=== PATIENT | female | born 1965 | race Caucasian/White ===

== ENCOUNTER 2016-11-26 11:36 | Outpatient (CLI) | payer OTHER, BC ==
[~2016-11-26] VITALS: Ht 172.7 cm; Wt 84.3 kg
[~2016-11-26 11:36] MED LIST: CLON-412 PO; CYMB60CA3 PO; LAMO10TA PO
[2016-11-26] MEDS ORDERED: NS 1,000 ML IV SCH (11:45)
[2016-11-26] MEDS ORDERED: LIDOCAINE 2% INJ 100 MG/5 ML SDV (FOR ANES.) As Ordered ONE (12:56)
[2016-11-26] MEDS ORDERED: PROPOFOL 200 MG/20 ML VIAL As Ordered ONE (12:56)
--- NOTE | 2016-11-26 13:05 | ROOR ---
Patient Name: Estela Gandhi Procedure Date: 11/26/2016 12:37 PM Date of : 1965 Age: 51 Room: [facility] Gender: Female Note Status: Finalized Procedure: Total Colonoscopy to Cecum + Biopsy Polypectomy Indications: Screening for colorectal malignant neoplasm Providers: Isaías Gill MD Referring MD: Sonia Chance NP Requesting Provider: Medicines: Monitored Anesthesia Care Complications: No immediate complications. Procedure: Pre-Anesthesia Assessment: - The heart rate, respiratory rate, oxygen saturations, blood pressure, adequacy of pulmonary ventilation, and response to care were monitored throughout the procedure. The Colonoscope was introduced through the anus and advanced to the cecum, identified by appendiceal orifice and ileocecal valve. The colonoscopy was performed without difficulty. The patient tolerated the procedure well. The quality of the bowel preparation was excellent. Findings: The perianal and digital rectal examinations were normal. Non-bleeding internal hemorrhoids were found during retroflexion. The hemorrhoids were small and Grade I (internal hemorrhoids that do not prolapse). Scattered small-mouthed diverticula were found in the recto-sigmoid colon, sigmoid colon and descending colon. A small polyp was found at 20 cm proximal to the anus. The polyp was sessile. The polyp was removed with a jumbo cold forceps. Resection and retrieval were complete. The exam was otherwise without abnormality on direct and retroflexion views. Impression: - Non-bleeding internal hemorrhoids. - Diverticulosis in the recto-sigmoid colon, in the sigmoid colon and in the descending colon. - One small polyp at 20 cm proximal to the anus, removed with a jumbo cold forceps. Resected and retrieved. - The examination was otherwise normal on direct and retroflexion views. - The exam was otherwise normal to the cecum. Recommendation: - Patient has a contact number available for emergencies. The signs and symptoms of potential delayed complications were discussed with the patient. Return to normal activities tomorrow. Written discharge instructions were provided to the patient. - Discharge patient to home. - Continue present medications. - Await pathology results. - Telephone GI clinic for pathology results in 1 week. - Repeat colonoscopy for surveillance based on pathology results. - Return to referring physician. - Check Portal Online for Path Results.([email or web address] - The findings and recommendations were discussed with the patient's family. Isaías Gill MD Isaías Gill MD 11/26/2016 1:05:04 PM This report has been signed electronically. Number of Addenda: 0 Note Initiated On: 11/26/2016 12:37 PM Estimated Blood Loss: Estimated blood loss: none.
[2016-11-26 13:28] VITALS: BP 115/69
== END 2016-11-26 13:30 | disposition home or self-care (01) ==
LOC: M OPP 11:36
PROVIDERS: ATTEND Internal Medicine Gastroenterology
DX: Z12.11 Encounter for screening for malignant neoplasm of colon (principal); K64.0 First degree hemorrhoids; K57.30 Diverticulosis of large intestine without perforation or abscess without bleeding; D12.5 Benign neoplasm of sigmoid colon; M79.7 Fibromyalgia; F41.9 Anxiety disorder, unspecified; Z79.899 Other long term (current) drug therapy

== ENCOUNTER → 2018-03-11 | Outpatient (REF) | payer OTHER ==
[2018-03-11 18:09] LABS: VITAMIN B12 LEVEL 454 PG/ML (247-911)
== END ==
LOC: M LAB REF 17:07
DX: R20.8 Other disturbances of skin sensation (principal)
CPT/HCPCS: 82607

== ENCOUNTER → 2020-05-27 | Outpatient (CLI) | payer SELFPAY ==
[~2020-05-27] MED LIST changes: +LAMO100T80 PO; -LAMO10TA PO
== END ==
LOC: M LABSMTC 14:16
PROVIDERS: ATTEND Pediatrics
DX: Z20.822 Contact with and (suspected) exposure to COVID-19 (principal)

== ENCOUNTER → 2021-01-12 | Outpatient (REF) | payer OTHER | LOC: M LAB REF 11:14 | PROVIDERS: ATTEND Nurse Practitioner Adult Health | DX: J02.9 Acute pharyngitis, unspecified (principal) ==

== ENCOUNTER → 2021-04-11 | Outpatient (REF) | payer OTHER ==
[~2021-04-11] MED LIST changes: -CYMB60CA3 PO; +CYMB60CA4 PO
== END ==
LOC: M LAB REF 16:08
PROVIDERS: ATTEND Nurse Practitioner Adult Health
DX: G43.109 Migraine with aura, not intractable, without status migrainosus (principal)

== ENCOUNTER → 2021-05-12 | Outpatient (CLI) | payer OTHER, BC ==
[~2021-05-12] MED LIST changes: +PROHANCE 279.3MG/ML 15ML VIAL ONE; +PROHANCE 279.3MG/ML 5ML VIAL ONE
== END ==
LOC: M PLAIMG 14:19
PROVIDERS: ATTEND Nurse Practitioner Adult Health
DX: R42 Dizziness and giddiness (principal)
CPT/HCPCS: 70553; A9576

== ENCOUNTER → 2024-04-24 | Outpatient (REF) | payer OTHER, BC ==
[~2024-04-24] MED LIST changes: -PROHANCE 279.3MG/ML 15ML VIAL ONE; -PROHANCE 279.3MG/ML 5ML VIAL ONE
[2024-04-27 13:14] LABS: RNP ANTIBODY <1.0 NEG AI (<1.0 NEG); SM ANTIBODY <1.0 NEG AI (<1.0 NEG); SSA SJOGRENS A <1.0 NEG AI (<1.0 NEG); SSB SJOGRENS B <1.0 NEG AI (<1.0 NEG)
[2024-04-27 17:11] LABS: ANA SCREEN, IFA NEGATIVE (NEGATIVE)
[2024-04-28 00:53] LABS: CYCLIC CITRULLINATED PEPTIDE < 16 UNITS (<20)
[2024-04-28 15:07] LABS: LYME TOTAL ANTIBODY CIA <= 0.90 Index (<=0.90)
== END ==
LOC: M LAB REF 16:22
PROVIDERS: ATTEND Internal Medicine
DX: M79.7 Fibromyalgia (principal); M25.50 Pain in unspecified joint

== ENCOUNTER 2024-11-16 09:14 | Day surgery (SDC) | payer OTHER, BC ==
[~2024-11-16] VITALS: Ht 172.7 cm; Wt 83.0 kg
[~2024-11-16 09:14] MED LIST changes: +DULO1CAP6 PO
[2024-11-16] MEDS ORDERED: LIDOCAINE 2% 100 MG/5 ML SDV (FOR ANES.) As Ordered ONE (09:55)
[2024-11-16 10:18] VITALS: TEMP 96.9
[2024-11-16 10:39] VITALS: BP 129/66; O2SAT 100
== END 2024-11-16 10:40 | disposition home or self-care (01) ==
LOC: M OPP 09:14
PROVIDERS: ATTEND Internal Medicine Gastroenterology
DX: Z12.11 Encounter for screening for malignant neoplasm of colon (principal); K64.0 First degree hemorrhoids; K57.30 Diverticulosis of large intestine without perforation or abscess without bleeding; Z86.0100 Personal history of colon polyps, unspecified; Z79.899 Other long term (current) drug therapy